=== PATIENT | female | born 1965 | race Caucasian/White ===

== ENCOUNTER 2019-04-13 18:05 | Inpatient (IN) | payer OTHER ==
[~2019-04-13] VITALS: Ht 165.1 cm; Wt 75.3 kg
[~2019-04-13 18:05] MED LIST: DIPH25CA83 PO
--- NOTE | 2019-04-13 18:40 | NUR ---
PT IS IN ROOM #1A. DR WHIETHEAD EVALUATED THE PT.
[2019-04-13] MEDS ORDERED: LEVOFLOXACIN 750 MG/D5W 150 ML PIGGYBACK IV ONE (18:45)
[2019-04-13] MEDS ORDERED: IV NORMAL SALINE 1000 ML BAG IV ONE (18:45)
[2019-04-13 18:46] LABS: BASOPHILS # (AUTO) 0.1 K/uL (0.0-8.0); BASOPHILS % (AUTO) 0.9 % (0.0-2.0); EOSINOPHILS # (AUTO) 0.1 K/uL (0.0-0.7); HEMATOCRIT 31.5 % (31.2-41.9); HEMOGLOBIN 10.9 g/dL (10.9-14.3); LYMPHOCYTES # (AUTO) 0.7 K/uL (20.0-40.0); LYMPHOCYTES % (AUTO) 8.8 % (20.5-51.5); MEAN CORPUSCULAR HEMOGLOBIN 33.7 uug (24.7-32.8); MEAN CORPUSCULAR HGB CONC 35 g/dL (32.3-35.6); MEAN CORPUSCULAR VOLUME 97.1 fL (75.5-95.3); MONOCYTES # (AUTO) 0.8 K/uL (2.0-10.0); MONOCYTES % (AUTO) 10.1 % (0.0-11.0); NEUTROPHILS # (AUTO) 6.4 K/uL (1.8-8.9); NEUTROPHILS % (AUTO) 79.2 % (38.5-71.5); PLATELET COUNT (AUTO) 392 K/uL (179-408); RED BLOOD CELL COUNT(AUTO) 3.24 MIL/uL (3.63-4.92)
[2019-04-13 18:52] LABS: CREATININE 0.9 mg/dL (0.6-1.3); POTASSIUM 3.4 mmol/L (3.5-5.1)
[2019-04-13 19:07] LABS: BILIRUBIN,DIRECT 0.1 mg/dL (0.0-0.2); BILIRUBIN,TOTAL 0.4 mg/dL (0.2-1.0); TOTAL PROTEIN, SERUM 7.9 g/dL (6.4-8.2)
[2019-04-13] MEDS ORDERED: LEVOFLOXACIN 750MG/D5W 150 ML IV ONE (19:12)
[2019-04-13] MEDS ORDERED: SWABABLE VALVE TRANSFER SET EA MC ONE (19:14)
[2019-04-13] MEDS ORDERED: IV NORMAL SALINE 250 ML IV ONE (19:15)
[2019-04-13] MEDS ORDERED: IOHEXOL 350 100 ML INFUS..BTL ONE (19:15)
--- NOTE | 2019-04-13 19:25 | NUR ---
Pt out of ER for CT.
[2019-04-13] MEDS ORDERED: HYDROMORPHONE 1 MG/1 ML DISP.SYRIN ONE ×2 (19:28→20:42)
[2019-04-13] MEDS ORDERED: ONDANSETRON 4 MG/2 ML VIAL ONE (19:28)
[2019-04-13] MEDS ORDERED: ONDANSETRON 4 MG/2 ML VIAL IV ONE (19:30)
[2019-04-13] MEDS ORDERED: HYDROMORPHONE 1 MG/1 ML DISP.SYRIN IV ONE ×2 (19:30→20:45)
--- NOTE | 2019-04-13 19:40 | NUR ---
Pt back to ER from CT.
--- NOTE | 2019-04-13 19:53 | NUR ---
Pt provided urine sample, sent to lab.
[2019-04-13 19:57] LABS: *BILIRUBIN,URIN NEGATIVE (NEGATIVE); *BLOOD, URINE NEGATIVE (NEGATIVE); *CLARITY,URINE CLEAR (CLEAR); *COLOR,URINE LIGHT YELLOW (YELLOW); *KETONES,URINE NEGATIVE (NEGATIVE); *UROBILINOGEN,URINE 0.2 E.U./dl (NORMAL); LEUKOCYTE ESTERASE ,URINE NEGATIVE (NEGATIVE); NITRITE, URINE NEGATIVE (NEGATIVE); PH,URINE 7.5 (5.0-8.0); UGLUCOSE NEGATIVE (NEGATIVE)
[2019-04-13] MEDS ORDERED: ENOXAPARIN SODIUM 80 MG/0.8 ML DISP.SYRIN SQ ONE ×2 (20:15→20:16)
--- NOTE | 2019-04-13 20:29 | NUR ---
Spoke to [place] from [facility] [place] for possible transfer to [facility]. Faxed Facesheet as requested by [place].
--- NOTE | 2019-04-13 20:30 | NUR ---
Dr. Sherwood left voicemail with Dr. Del Rosario regarding admission and transfer to [facility]. Awaiting call back
--- NOTE | 2019-04-13 20:42 | NUR ---
Ultrasound at bedside.
--- NOTE | 2019-04-13 20:55 | NUR ---
Note natalio in ED - 04/13/19 at [address] Sherwood on panel call with Alina Torres NP. Patient accepted for admission to [facility], diagnosis pulmonary embolism and right lower lobe pneumonia.
--- NOTE | 2019-04-13 20:57 | NUR ---
Dr. Sherwood on panel call with Alina Torres NP. Patient accepted for admission to [facility], diagnosis pulmonary embolism and right lower lobe pneumonia.
[2019-04-13] MEDS ORDERED: GABAPENTIN 300 MG CAPSULE ONE (21:08)
--- NOTE | 2019-04-13 21:10 | NUR ---
Report given to [facility].
[2019-04-13] MEDS ORDERED: GABAPENTIN 300 MG CAPSULE PO ONE (21:15)
[2019-04-13 21:30] VITALS: BP 142/93
--- NOTE | 2019-04-13 21:30 | NUR ---
Admitted as [facility] status. O2 4L N/C. PIV right A/C via pump. Left & Right surgical ABE's see skin issue photo's. Voided; last BM today.
[2019-04-13] MEDS ORDERED: Z GUARD REMEDY PASTE 57 GM TUBE TOP PRN (22:00)
[2019-04-13] MEDS ORDERED: HYDROCODONE/APAP 5-325MG TABLET PO PRN (22:00)
[2019-04-13] MEDS ORDERED: ACETAMINOPHEN 325 MG TABLET PO PRN (22:00)
[2019-04-13] MEDS ORDERED: ZOLPIDEM 5 MG TABLET PO PRN (22:00)
[2019-04-13] MEDS ORDERED: MAGNESIUM HYDROXIDE 30 ML LIQUID UDC PO PRN (22:00)
[2019-04-13] MEDS ORDERED: POTASSIUM CHLORIDE 20 MEQ TAB.PRT.SR PO ONE (22:15)
[2019-04-13] MEDS ORDERED: PAROXETINE HCL 10 MG TABLET ONE (22:42)
[2019-04-13] MEDS: PAROXETINE HCL 10 MG TABLET PO SCH (22:46)
[2019-04-13] MEDS: IV NS 1000 ML 1,000 ML IV PRN (22:59)
[2019-04-14 00:01] VITALS: BP 142/71
--- NOTE | 2019-04-14 00:30 | NUR ---
[facility] called / update. [phone] Madrigal.
[2019-04-14] MEDS: HYDROMORPHONE 1 MG/1 ML DISP.SYRIN IV PRN ×5 (00:47→20:26)
[2019-04-14 04:00] VITALS: BP 137/63
[2019-04-14] MEDS: ONDANSETRON 4 MG/2 ML VIAL IV PRN ×2 (04:13→15:13)
--- NOTE | 2019-04-14 04:45 | NUR ---
Med / eMar / c/o 7/10 H/A & feelings of nausea; with desired effects.
[2019-04-14 06:33] LABS: EOSINOPHILS % (AUTO) 0.6 % (0.0-7.0); LYMPHOCYTES # (AUTO) 0.9 K/uL (20.0-40.0); NEUTROPHILS # (AUTO) 5.8 K/uL (1.8-8.9); RED BLOOD CELL COUNT(AUTO) 2.82 MIL/uL (3.63-4.92)
[2019-04-14 06:41] LABS: BASOPHILS % (AUTO) 0.4 % (0.0-2.0); LYMPHOCYTES % (AUTO) 11.9 % (20.5-51.5); MEAN CORPUSCULAR HEMOGLOBIN 33.9 uug (24.7-32.8); MEAN CORPUSCULAR HGB CONC 35 g/dL (32.3-35.6); MEAN CORPUSCULAR VOLUME 97.4 fL (75.5-95.3); MONOCYTES % (AUTO) 12.9 % (0.0-11.0); NEUTROPHILS % (AUTO) 74.2 % (38.5-71.5); PLATELET COUNT (AUTO) 318 K/uL (179-408); WHITE BLOOD COUNT (AUTO) 7.9 K/uL (3.8-11.8)
[2019-04-14 06:42] LABS: HEMATOCRIT 27.5 % (31.2-41.9); HEMOGLOBIN 9.6 g/dL (10.9-14.3)
[2019-04-14 06:54] LABS: CREATININE 0.8 mg/dL (0.6-1.3); MAGNESIUM 1.9 mg/dL (1.8-2.4); PHOSPHOROUS 3.9 mg/dL (2.5-4.9); POTASSIUM 4.3 mmol/L (3.5-5.1)
[2019-04-14 08:00] VITALS: BP 154/82
--- NOTE | 2019-04-14 08:00 | NUR ---
Awake, alert, oriented x 4, complaining of headache. Dilaudid IV given as ordered. O2 at 3L/NC with O2 sats of 97%. IVF infusing.
[2019-04-14] MEDS: ENOXAPARIN SODIUM 80 MG/0.8 ML DISP.SYRIN SQ SCH ×2 (08:02→20:26)
[2019-04-14] MEDS: GABAPENTIN 300 MG CAPSULE PO SCH ×3 (08:03→18:23)
[2019-04-14] MEDS ORDERED: METOCLOPRAMIDE HCL 10 MG/2 ML VIAL IV ONE (09:00)
--- NOTE | 2019-04-14 09:20 | NUR ---
Complained of nausea. Breakfast on hold. Reglan IV given as ordered.
[2019-04-14] MEDS ORDERED: GABA-534 PO (11:24)
[2019-04-14] MEDS ORDERED: PARO-154 PO (11:25)
[2019-04-14 12:30] VITALS: BP 124/85
[2019-04-14] MEDS: DOCUSATE SODIUM 100 MG CAPSULE PO SCH ×2 (13:06→20:24)
[2019-04-14] MEDS: IV NS 1000 ML 1,000 ML IV PRN (15:12)
--- NOTE | 2019-04-14 15:15 | NUR ---
Complained of headache with nausea. Dilaudid with Zofran IV given with relief
[2019-04-14 16:00] VITALS: BP 147/73
[2019-04-14] MEDS ORDERED: LEVOFLOXACIN 750MG/D5W 750 MG in PREMIXED 1 EACH IV SCH (18:00)
--- NOTE | 2019-04-14 18:00 | NUR ---
Had sponge bath, no SOB noted. Ate dinner, 25 %of meal.
[2019-04-14 20:00] VITALS: BP 154/76
--- NOTE | 2019-04-14 20:00 | NUR ---
RECEIVED PATIENT LYING IN BED. AAOX4. IN NO ACUTE DISTRESS. COMPLAIN OF PAIN ON RIGHT ARM/AXILLARY AREA AND HEADACHE, WILL PROVIDE PAIN MEDICATION PER ORDER. DENIES ANY SOB. ON O2 AT 3LPM VIA NC IN PLACE. O2 SAT AT 99% NSR ON TELE AT 89/MIN. IV SITE ON RIGHT AC INTACT AND PATENT. IVF INFUSING. NEEDS ASSESSED AND ATTENDED TO. SAFETY MEASURE INITIATED AND CALL TEJEDA WITHIN REACH.
[2019-04-14] MEDS: PAROXETINE HCL 10 MG TABLET PO SCH (20:24)
[2019-04-14] MEDS: METOCLOPRAMIDE HCL 10 MG/2 ML VIAL IV PRN (20:24)
[2019-04-15] VITALS: BP 139/73
[2019-04-15] MEDS: ONDANSETRON 4 MG/2 ML VIAL IV PRN ×2 (01:05→10:21)
[2019-04-15] MEDS: HYDROMORPHONE 1 MG/1 ML DISP.SYRIN IV PRN ×2 (01:06→05:06)
[2019-04-15] MEDS: IV NS 1000 ML 1,000 ML IV PRN (03:18)
[2019-04-15 04:00] VITALS: BP 141/72
[2019-04-15] MEDS: METOCLOPRAMIDE HCL 10 MG/2 ML VIAL IV PRN ×2 (05:05→15:59)
--- NOTE | 2019-04-15 06:16 | NUR ---
AAOX4. DILAUDID PRN PER ORDER GIVEN FOR COMPLAIN OF PAIN ON RIGHT ARM/AXILLARY AREA AND HEADACHE AND EFFECTIVE. ON O2 AT 3LPM VIA NC IN PLACE. O2 SAT AT 93% NSR ON TELE AT 82/MIN. IV SITE ON RIGHT AC INTACT AND PATENT. IVF INFUSING. NO ADVERSE REACTION NOTED FROM IV ABX. ABE ON GISELE. BREAST AREA WITH SANGUINOUS DRAINAGE, 10CC EACH. SAFETY MEASURE MAINTAINED AND CALL TEJEDA WITHIN REACH
[2019-04-15 07:59] VITALS: BP 150/62
[2019-04-15] MEDS: GABAPENTIN 300 MG CAPSULE PO SCH ×3 (08:28→16:00)
[2019-04-15] MEDS: DOCUSATE SODIUM 100 MG CAPSULE PO SCH (08:28)
[2019-04-15] MEDS: ENOXAPARIN SODIUM 80 MG/0.8 ML DISP.SYRIN SQ SCH (08:29)
[2019-04-15 10:20] LABS: CREATININE 0.7 mg/dL (0.6-1.3)
[2019-04-15] MEDS: MORPHINE SULFATE 2 MG/1 ML DISP.SYRIN IV PRN ×2 (10:21→15:51)
[2019-04-15 10:42] LABS: EOSINOPHILS # (AUTO) 0.1 K/uL (0.0-0.7); HEMOGLOBIN 9.2 g/dL (10.9-14.3); MONOCYTES # (AUTO) 0.6 K/uL (2.0-10.0); NEUTROPHILS # (AUTO) 3.4 K/uL (1.8-8.9)
[2019-04-15 10:46] LABS: BASOPHILS % (AUTO) 0.5 % (0.0-2.0); EOSINOPHILS % (AUTO) 2.4 % (0.0-7.0); HEMATOCRIT 27.6 % (31.2-41.9); LYMPHOCYTES # (AUTO) 1.2 K/uL (20.0-40.0); LYMPHOCYTES % (AUTO) 22.4 % (20.5-51.5); MEAN CORPUSCULAR HEMOGLOBIN 32.8 uug (24.7-32.8); MEAN CORPUSCULAR HGB CONC 33 g/dL (32.3-35.6); MEAN CORPUSCULAR VOLUME 98.6 fL (75.5-95.3); NEUTROPHILS % (AUTO) 63.7 % (38.5-71.5); PLATELET COUNT (AUTO) 314 K/uL (179-408)
[2019-04-15 10:52] LABS: WHITE BLOOD COUNT (AUTO) 5.4 K/uL (3.8-11.8)
[2019-04-15 11:46] VITALS: BP 142/73
--- NOTE | 2019-04-15 14:30 | NUR ---
[address] phone report given to [facility] Intake Ms Norman and receiving R.Angelina Denny. As informed by both [facility] and by attending here and Scarlett Torres who endorse to receiving physician, patient will be going as a med-surge patient. SOB been no issue for transfer as long as pt. go with oxygen. Both patient and aware of transfer. All questions answered to receiving unit. Patient will be going to room 8819 receiving R.Liliana. Denisha. Transfer arranged by Case management, Ms. Florinda Serna here at [facility] and transfer intake at [facility], Ms. Norman Patient going with IV c.d.i. to RAC G 20. 3L oxygen, via AR.
[2019-04-15 15:09] VITALS: BP 151/80
--- NOTE | 2019-04-15 16:11 | NUR ---
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, bedside report given to Mr. WaltersIGOR. Patient premedicated as requested with morphine and reglan. 1700 medications given at this time. IV line to RAC patent. patient going with 3LNC. vital stable and afebrile. Addendum: 04/15/19 at 1614 by KELSEY FONG RN 1700 hundred meds given xcept michael not available at this time.
[2019-04-15] MEDS ORDERED: APIXABAN 5 MG TABLET PO SCH (17:00)
[2019-04-22] MEDS ORDERED: APIXABAN 5 MG TABLET PO SCH (17:00)
== END 2019-04-15 16:20 | disposition short-term general hospital (02) | DRG 175 ==
LOC: ER 18:05 → CCU 21:14 → TELE-TD3 04-14 03:30 → TELE3 04-15 11:00
PROVIDERS: ADMIT Nurse Practitioner Acute Care; ATTEND Nurse Practitioner Acute Care
DX: I26.99 Other pulmonary embolism without acute cor pulmonale (principal); J96.01 Acute respiratory failure with hypoxia; J18.1 Lobar pneumonia, unspecified organism; D62 Acute posthemorrhagic anemia; C50.912 Malignant neoplasm of unspecified site of left female breast; R51 Headache; Z98.890 Other specified postprocedural states
CPT/HCPCS: 36415; 70030-TC; 70450; 71045; 71275; 83605; 83735; 84100; 85025; 87040; 93005; 93307; A4663; G0378; J1170; J1650; J1956; J2270; J2405; J2765; J7030; J7050; Q9967